=== PATIENT | male | born 1955 | race African-American/Black ===

== ENCOUNTER 2019-10-06 16:50 | Emergency (ER) | payer MEDICAID ==
[~2019-10-06] VITALS: Ht 180.3 cm; Wt 82.0 kg
[2019-10-06] MEDS ORDERED: PREDNISONE 20MG TABLET PO STA (17:42)
[2019-10-06] MEDS ORDERED: IPRATROPIUM BROMIDE (0.02%) 0.5MG/2.5ML NEB HHN STA (17:42)
[2019-10-06] MEDS ORDERED: ALBUTEROL (0.083%) 2.5MG/3ML NEB HHN STA (17:42)
[2019-10-06 20:24] VITALS: BP 132/87
== END 2019-10-06 20:56 | disposition home or self-care (01) ==
LOC: ER 16:50
DX: J44.1 Chronic obstructive pulmonary disease with (acute) exacerbation (principal); E11.9 Type 2 diabetes mellitus without complications; Z79.51 Long term (current) use of inhaled steroids
CPT/HCPCS: 93005; 94640; 99283; J7512; J7610; Z7610

== ENCOUNTER 2019-10-21 10:33 | Inpatient (IN) | payer MEDICAID ==
[~2019-10-21] VITALS: Ht 172.7 cm; Wt 82.1 kg
[2019-10-21] MEDS ORDERED: IPRATROPIUM BROMIDE (0.02%) 0.5MG/2.5ML NEB HHN STA (10:58)
[2019-10-21] MEDS ORDERED: METHYLPREDNISOLONE SOD SUCC 125 MG/2 ML VIAL IV STA (10:58)
[2019-10-21] MEDS ORDERED: MAGNESIUM 2 G PREMIX 50 ML IV ONE (11:00)
[2019-10-21] MEDS: ALBUTEROL (0.083%) 2.5MG/3ML NEB HHN SCH ×3 (11:17→12:12)
[2019-10-21 11:27] LABS: BASOPHILS % 0.6 % (0.0-2.0); EOSINOPHILS % 6.2 % (0.0-5.0); HEMATOCRIT. 53.5 % (42.0-52.0); HEMOGLOBIN. 18.2 g/dL (14.0-18.0); LYMPHOCYTES % 20.9 % (20.0-50.0); MEAN PLATELET VOLUME 8.1 fl (7.4-10.4); MONOCYTES % 9.3 % (2.0-8.0); PLATELET 170 x1000/uL (130-400); RED BLOOD CELL COUNT 5.88 mill/uL (4.7-6.1); RED CELL DISTRIBUTION WIDTH 15.3 % (11.6-14.6)
[2019-10-21 11:32] LABS: CHLORIDE 103 mEq/L (98-107)
[2019-10-21 11:34] LABS: PROTHROMBIN TIME 10.7 sec (9.6-11.0)
[2019-10-21] MEDS ORDERED: ALBUTEROL (0.083%) 2.5MG/3ML NEB HHN SCH (13:00)
[2019-10-21 20:00] VITALS: BP_SYST 144; BP_DIAS 78; BP_DIAS 79
[2019-10-21] MEDS ORDERED: ACETAMINOPHEN 325MG TABLET PO PRN (20:00)
[2019-10-21] MEDS ORDERED: IPRATROPIUM/ALBUTEROL 0.5-3(2.5)MG/3ML NEB HHN PRN (20:00)
[2019-10-21] MEDS ORDERED: ONDANSETRON HCL 4MG/2ML INJ IV PRN (20:00)
[2019-10-21] MEDS ORDERED: LORAZEPAM 0.5MG TABLET PO PRN (20:00)
[2019-10-21] MEDS ORDERED: HYDROCODONE/ACETAMINOPHEN 5/325MG TABLET PO PRN (20:00)
[2019-10-21] MEDS ORDERED: CLONIDINE 0.1MG TABLET PO PRN (20:00)
[2019-10-21 22:00] VITALS: BP 139/78
[2019-10-21] MEDS: METHYLPREDNISOLONE SOD SUCC 40 MG/ML VIAL IV SCH (22:37)
[2019-10-21] MEDS: GUAIFENESIN 200MG/10ML SUGAR FREE UDC PO PRN (22:37)
[2019-10-22] VITALS (8 sets, daily range): BP systolic 121–150; BP diastolic 71–86
[2019-10-22] MEDS: METHYLPREDNISOLONE SOD SUCC 40 MG/ML VIAL IV SCH ×3 (06:24→21:35)
[2019-10-22 06:26] LABS: BASOPHILS % 0.2 % (0.0-2.0); EOSINOPHILS % 0.1 % (0.0-5.0); HEMATOCRIT. 47.4 % (42.0-52.0); LYMPHOCYTES % 8.1 % (20.0-50.0); MEAN CORPUSCULAR HEMOGLOBIN 30.8 pg (28.0-32.0); MEAN CORPUSCULAR VOLUME 91.3 fL (80.0-94.0); MEAN PLATELET VOLUME 8.7 fl (7.4-10.4); MONOCYTES % 4.2 % (2.0-8.0); NEUTROPHILS % 87.4 % (40.0-76.0); PLATELET 157 x1000/uL (130-400); RED BLOOD CELL COUNT 5.19 mill/uL (4.7-6.1); RED CELL DISTRIBUTION WIDTH 15.3 % (11.6-14.6)
[2019-10-22 06:38] LABS: CHLORIDE 105 mEq/L (98-107)
[2019-10-22] MEDS ORDERED: DEXTROSE 50% WATER 50ML SYRINGE IV PRN ×2 (06:45→07:50)
[2019-10-22] MEDS: INSULIN LISPRO 100 UNITS/ML SUBCUT SCH ×4 (06:49→21:00)
[2019-10-22] MEDS: BLOOD SUGAR DIAGNOSTIC STRIP TEST SCH ×4 (06:50→21:00)
[2019-10-22] MEDS: IPRATROPIUM/ALBUTEROL 0.5-3(2.5)MG/3ML NEB HHN SCH ×3 (13:20→20:20)
[2019-10-22] MEDS: GUAIFENESIN 200MG/10ML SUGAR FREE UDC PO PRN (23:47)
[2019-10-23] MEDS: IPRATROPIUM/ALBUTEROL 0.5-3(2.5)MG/3ML NEB HHN SCH ×6 (00:19→20:57)
[2019-10-23] MEDS: METHYLPREDNISOLONE SOD SUCC 40 MG/ML VIAL IV SCH ×3 (05:28→21:22)
[2019-10-23] MEDS: INSULIN LISPRO 100 UNITS/ML SUBCUT SCH ×4 (06:45→21:22)
[2019-10-23] MEDS: BLOOD SUGAR DIAGNOSTIC STRIP TEST SCH ×4 (07:04→21:22)
[2019-10-23 08:00] VITALS: BP 148/81
[2019-10-23] MEDS ORDERED: GUAIFENESIN/CODEINE 200-20MG/10ML UDC PO PRN (10:00)
[2019-10-23 12:00] VITALS: BP 137/88
[2019-10-23 16:00] VITALS: BP 137/87
[2019-10-23 20:00] VITALS: BP 138/84
[2019-10-24] VITALS: BP 106/64
[2019-10-24] MEDS: IPRATROPIUM/ALBUTEROL 0.5-3(2.5)MG/3ML NEB HHN SCH ×4 (00:30→13:19)
[2019-10-24 04:00] VITALS: BP 121/70
[2019-10-24] MEDS: BLOOD SUGAR DIAGNOSTIC STRIP TEST SCH ×2 (05:57→11:45)
[2019-10-24] MEDS: METHYLPREDNISOLONE SOD SUCC 40 MG/ML VIAL IV SCH ×2 (05:58→13:13)
[2019-10-24] MEDS: INSULIN LISPRO 100 UNITS/ML SUBCUT SCH ×2 (05:59→13:15)
[2019-10-24 06:31] LABS: CHLORIDE 103 mEq/L (98-107)
[2019-10-24 06:47] LABS: BASOPHILS % 0.4 % (0.0-2.0); HEMOGLOBIN. 15.9 g/dL (14.0-18.0); LYMPHOCYTES % 7.5 % (20.0-50.0); MEAN CORPUSCULAR HEMOGLOBIN 31.5 pg (28.0-32.0); MEAN CORPUSCULAR VOLUME 91.1 fL (80.0-94.0); MEAN PLATELET VOLUME 8.8 fl (7.4-10.4); MONOCYTES % 5.6 % (2.0-8.0); NEUTROPHILS % 86.5 % (40.0-76.0); PLATELET 171 x1000/uL (130-400); RED BLOOD CELL COUNT 5.06 mill/uL (4.7-6.1)
[2019-10-24 08:00] VITALS: BP 146/86
[2019-10-24 12:00] VITALS: BP 143/87
[2019-10-24] MEDS ORDERED: ALBU18HF2 IH (12:25)
[2019-10-24] MEDS ORDERED: BENZ-16 MT (12:25)
[2019-10-24] MEDS ORDERED: P20 MT (12:25)
[2019-10-24] MEDS ORDERED: GUAI-641 MT (12:25)
[2019-10-24 13:40] VITALS: BP 143/87
[2019-10-24] MEDS ORDERED: IPRA3AMP9 HHN (15:28)
== END 2019-10-24 16:16 | disposition home or self-care (01) | DRG 140 ==
LOC: ER 10:33 → 5WST 12:27 → EDBEDREQ 12:30 → EDBEDREQTM 12:30 → EDBEDREQ 12:31 → ENRESERV 17:05
PROVIDERS: ADMIT Internal Medicine; ATTEND Internal Medicine
PROC: 5A09357 Assistance with Respiratory Ventilation, Less than 24 Consecutive Hours, Continuous Positive Airway Pressure (ICD-10-PCS; principal; 2019-10-21)
DX: J44.1 Chronic obstructive pulmonary disease with (acute) exacerbation (principal); J96.00 Acute respiratory failure, unspecified whether with hypoxia or hypercapnia; E11.9 Type 2 diabetes mellitus without complications; I10 Essential (primary) hypertension; Z87.891 Personal history of nicotine dependence; Z79.84 Long term (current) use of oral hypoglycemic drugs; Z82.5 Family history of asthma and other chronic lower respiratory diseases; Z88.0 Allergy status to penicillin
CPT/HCPCS: 36415; 71045; 80048; 80053; 82962; 83036; 83880; 84484; 85025; 93005; 94640; 96365; 99291; J1815; J2920; J2930; J3475

== ENCOUNTER 2019-11-11 06:15 | Inpatient (IN) | payer MEDICAID ==
[~2019-11-11] VITALS: Ht 180.3 cm; Wt 87.1 kg
[~2019-11-11 06:15] MED LIST: ALBU18HF2 IH; BENZ-16 MT; GUAI-641 MT; IPRA3AMP9 HHN; P20 MT
[2019-11-11] MEDS ORDERED: METHYLPREDNISOLONE SOD SUCC 125 MG/2 ML VIAL IV STA (06:23)
[2019-11-11] MEDS ORDERED: IPRATROPIUM BROMIDE (0.02%) 0.5MG/2.5ML NEB HHN STA (06:23)
[2019-11-11] MEDS ORDERED: MAGNESIUM 2 G PREMIX 50 ML IV STA (06:23)
[2019-11-11] MEDS ORDERED: ALBUTEROL (0.083%) 2.5MG/3ML NEB HHN STA (06:23)
[2019-11-11 06:39] LABS: BASOPHILS % 0.7 % (0.0-2.0); EOSINOPHILS % 6.7 % (0.0-5.0); HEMATOCRIT. 51.5 % (42.0-52.0); HEMOGLOBIN. 17.6 g/dL (14.0-18.0); LYMPHOCYTES % 25.1 % (20.0-50.0); MEAN CORPUSCULAR VOLUME 90.9 fL (80.0-94.0); MEAN PLATELET VOLUME 7.9 fl (7.4-10.4); MONOCYTES % 10.3 % (2.0-8.0); NEUTROPHILS % 57.2 % (40.0-76.0); PLATELET 183 x1000/uL (130-400); RED BLOOD CELL COUNT 5.67 mill/uL (4.7-6.1); RED CELL DISTRIBUTION WIDTH 14.9 % (11.6-14.6)
[2019-11-11 06:45] LABS: CHLORIDE 103 mEq/L (98-107)
[2019-11-11 11:55] VITALS: BP 137/90
[2019-11-11 12:00] VITALS: BP 137/90
[2019-11-11] MEDS ORDERED: ONDANSETRON HCL 4MG/2ML INJ IV PRN (12:15)
[2019-11-11] MEDS ORDERED: DEXTROSE 50% WATER 50ML SYRINGE IV PRN (12:15)
[2019-11-11] MEDS ORDERED: ACETAMINOPHEN 325MG TABLET PO PRN (12:15)
[2019-11-11] MEDS ORDERED: METF-414 PO (12:18)
[2019-11-11] MEDS: BLOOD SUGAR DIAGNOSTIC STRIP TEST SCH ×3 (12:21→21:26)
[2019-11-11] MEDS: ENOXAPARIN 30MG/0.3ML SYR SUBCUT SCH ×2 (13:27→21:26)
[2019-11-11] MEDS: METHYLPREDNISOLONE SOD SUCC 40 MG/ML VIAL IV SCH ×2 (13:27→21:25)
[2019-11-11] MEDS: INSULIN LISPRO 100 UNITS/ML SUBCUT SCH ×3 (13:35→21:26)
[2019-11-11 16:00] VITALS: BP 150/96
[2019-11-11] MEDS: IPRATROPIUM/ALBUTEROL 0.5-3(2.5)MG/3ML NEB HHN SCH ×2 (16:26→20:24)
[2019-11-11] MEDS: BENZONATATE 100MG CAPSULE PO PRN (20:24)
[2019-11-11 20:27] VITALS: BP 149/86
[2019-11-11] MEDS ORDERED: PNEUMOCOCCAL 23-VAL P-SAC VAC 0.5 ML IM ONE (21:00)
[2019-11-11] MEDS ORDERED: INFLUENZA VIRUS VACCINE(AFLURIA) 0.5ML SYR IM ONE (21:00)
[2019-11-12 00:02] VITALS: BP 119/76
[2019-11-12 04:00] VITALS: BP 133/83
[2019-11-12] MEDS: BENZONATATE 100MG CAPSULE PO PRN ×2 (04:05→12:44)
[2019-11-12] MEDS: METHYLPREDNISOLONE SOD SUCC 40 MG/ML VIAL IV SCH ×3 (06:08→22:00)
[2019-11-12] MEDS: BLOOD SUGAR DIAGNOSTIC STRIP TEST SCH ×4 (06:09→21:00)
[2019-11-12] MEDS: ENOXAPARIN 30MG/0.3ML SYR SUBCUT SCH (08:09)
[2019-11-12 08:28] VITALS: BP 135/92
[2019-11-12] MEDS: IPRATROPIUM/ALBUTEROL 0.5-3(2.5)MG/3ML NEB HHN SCH ×2 (09:16→16:23)
[2019-11-12] MEDS: INSULIN LISPRO 100 UNITS/ML SUBCUT SCH ×4 (09:32→21:00)
[2019-11-12 12:17] VITALS: BP 136/89
[2019-11-12 16:14] VITALS: BP 139/92
[2019-11-12] MEDS: GUAIFENESIN-DM 200MG-20MG/10ML UDC PO PRN (17:29)
[2019-11-12 20:00] VITALS: BP 127/84
[2019-11-13] VITALS: BP 120/82
[2019-11-13] MEDS: IPRATROPIUM/ALBUTEROL 0.5-3(2.5)MG/3ML NEB HHN SCH ×2 (00:20→08:20)
[2019-11-13] MEDS: METHYLPREDNISOLONE SOD SUCC 40 MG/ML VIAL IV SCH ×2 (06:11→13:11)
[2019-11-13] MEDS: BENZONATATE 100MG CAPSULE PO PRN (06:11)
[2019-11-13] MEDS: GUAIFENESIN-DM 200MG-20MG/10ML UDC PO PRN ×2 (06:26→14:24)
[2019-11-13] MEDS: BLOOD SUGAR DIAGNOSTIC STRIP TEST SCH ×2 (06:26→13:11)
[2019-11-13] MEDS: INSULIN LISPRO 100 UNITS/ML SUBCUT SCH ×2 (07:50→13:14)
[2019-11-13 08:00] VITALS: BP 122/83
[2019-11-13] MEDS ORDERED: ENOXAPARIN 40MG/0.4ML SYR SUBCUT SCH (09:00)
[2019-11-13 12:00] VITALS: BP 137/84
[2019-11-13 14:19] LABS: BG BASE EXCESS 2.1 mmol/L (-2.0-2.0); BG CARBOXYHEMOGLOBIN 0.6 % (0.5-1.5); BG DEOXYHEMOGLOBIN 5.6 % (0.0-5.0); BG HCO3 ACT 26.7 mmol/L (22.0-26.0); BG METHEMOGLOBIN 0.3 % (0.0-1.5); BG OXYGEN SATURATION 94.3 % (92.0-98.5); BG OXYHEMOGLOBIN 93.5 % (94.0-97.0); BG PCO2 41.5 mmHg (35.0-45.0); BG PH 7.427 (7.350-7.450); BG PO2 74.2 mmHg (75.0-100.0); BG SAMPLE SITE RIGHT RADIAL; BG TOTAL HEMOGLOBIN 16.9 g/dL (12.0-18.0); BG VENT MODE ROOM AIR
[2019-11-13] MEDS ORDERED: IPRA3AMP9 HHN (14:47)
[2019-11-13] MEDS ORDERED: MED4 MT (14:47)
[2019-11-13] MEDS ORDERED: ALBU18HF2 IH (14:47)
[2019-11-13] MEDS ORDERED: BENZ-16 MT (14:47)
[2019-11-13 15:15] VITALS: BP 137/84
[2019-11-13 16:20] VITALS: BP 140/84
== END 2019-11-13 17:20 | disposition home or self-care (01) | DRG 133 ==
LOC: ER 06:15 → 6WST 07:36 → ENRESERV 09:30 → 7WST 11-13 11:33
PROVIDERS: ADMIT Internal Medicine; ATTEND Internal Medicine
DX: J96.00 Acute respiratory failure, unspecified whether with hypoxia or hypercapnia (principal); R65.11 Systemic inflammatory response syndrome (SIRS) of non-infectious origin with acute organ dysfunction; D72.1 Eosinophilia; J44.0 Chronic obstructive pulmonary disease with (acute) lower respiratory infection; J44.1 Chronic obstructive pulmonary disease with (acute) exacerbation; I10 Essential (primary) hypertension; J20.9 Acute bronchitis, unspecified; E11.9 Type 2 diabetes mellitus without complications; Z88.0 Allergy status to penicillin; Z79.899 Other long term (current) drug therapy
CPT/HCPCS: 36415; 36600; 71045; 80053; 82375; 82805; 82962; 83880; 84484; 85025; 90686; 93005; 94640; 96365; 99285; J1650; J1815; J2920; J2930; J3475

== ENCOUNTER 2019-12-04 14:26 | Inpatient (IN) | payer MEDICAID ==
[~2019-12-04] VITALS: Ht 180.3 cm; Wt 83.6 kg
[~2019-12-04 14:26] MED LIST changes: -GUAI-641 MT; +MED4 MT; +METF-414 PO; -P20 MT
[2019-12-04] MEDS ORDERED: METHYLPREDNISOLONE SOD SUCC 125 MG/2 ML VIAL IV STA (14:51)
[2019-12-04 15:21] LABS: BASOPHILS % 0.5 % (0.0-2.0); EOSINOPHILS % 7.7 % (0.0-5.0); HEMATOCRIT. 48.5 % (42.0-52.0); HEMOGLOBIN. 16.8 g/dL (14.0-18.0); LYMPHOCYTES % 26.7 % (20.0-50.0); MEAN CORPUSCULAR HEMOGLOBIN 31.2 pg (28.0-32.0); MEAN CORPUSCULAR VOLUME 90.2 fL (80.0-94.0); MEAN PLATELET VOLUME 7.9 fl (7.4-10.4); MONOCYTES % 9.9 % (2.0-8.0); NEUTROPHILS % 55.2 % (40.0-76.0); PLATELET 196 x1000/uL (130-400); RED BLOOD CELL COUNT 5.38 mill/uL (4.7-6.1); RED CELL DISTRIBUTION WIDTH 14.1 % (11.6-14.6)
[2019-12-04 15:27] LABS: CHLORIDE 106 mEq/L (98-107)
[2019-12-04] MEDS ORDERED: ALBUTEROL (0.083%) 2.5MG/3ML NEB HHN ONE ×2 (16:00→18:00)
[2019-12-04 19:28] LABS: *AMPHETAMINES SCREEN URINE NEGATIVE (NEGATIVE); CANNABINOID URINE SCREEN NEGATIVE (NEGATIVE); METHADONE URINE SCREEN NEGATIVE (NEGATIVE); OPIATES URINE SCREEN NEGATIVE (NEGATIVE); PHENCYCLIDINE URINE SCREEN NEGATIVE (NEGATIVE)
[2019-12-04 19:29] LABS: *BARBITURATES SCREEN URINE NEGATIVE (NEGATIVE); *BENZODIAZEPINES SCREEN URINE NEGATIVE (NEGATIVE); *COCAINE SCREEN URINE NEGATIVE (NEGATIVE)
[2019-12-05 03:50] VITALS: BP 140/88
[2019-12-05] MEDS ORDERED: ALBUTEROL (0.083%) 2.5MG/3ML NEB HHN SCH (06:00)
[2019-12-05] MEDS: METHYLPREDNISOLONE SOD SUCC 40 MG/ML VIAL IV SCH ×3 (06:55→20:56)
[2019-12-05] MEDS ORDERED: LEVOFLOXACIN 500MG PREMIX 100 ML IV SCH (07:00)
[2019-12-05 08:00] VITALS: BP_SYST 128; BP_SYST 134; BP_DIAS 78; BP_DIAS 84
[2019-12-05] MEDS ORDERED: ENOXAPARIN 30MG/0.3ML SYR SUBCUT SCH (09:00)
[2019-12-05] MEDS ORDERED: ENOXAPARIN 40MG/0.4ML SYR SUBCUT SCH (09:00)
[2019-12-05] MEDS ORDERED: NON FORMULARY PATIENT HOME MED XX SCH (09:00)
[2019-12-05] MEDS ORDERED: GUAIFENESIN-DM 200MG-20MG/10ML UDC PO PRN (09:30)
[2019-12-05 12:00] VITALS: BP 122/75
[2019-12-05] MEDS: BENZONATATE 100MG CAPSULE PO SCH ×2 (12:16→20:57)
[2019-12-05] MEDS: BUDESONIDE 0.5MG/2ML NEB HHN SCH ×2 (14:33→21:29)
[2019-12-05 16:00] VITALS: BP 128/82
[2019-12-05] MEDS ORDERED: FLUT1DIS3 INH (16:09)
[2019-12-05] MEDS ORDERED: ALBU18HF2 IH (16:09)
[2019-12-05] MEDS ORDERED: IPRA3AMP9 HHN (16:09)
[2019-12-05] MEDS ORDERED: BENZ-16 MT (16:09)
[2019-12-05] MEDS ORDERED: P20 MT (16:10)
[2019-12-05 20:00] VITALS: BP 125/75
[2019-12-06] VITALS: BP 116/71
[2019-12-06] MEDS: ALBUTEROL (0.083%) 2.5MG/3ML NEB HHN SCH ×4 (01:40→21:06)
[2019-12-06 04:00] VITALS: BP 108/66
[2019-12-06] MEDS: METHYLPREDNISOLONE SOD SUCC 40 MG/ML VIAL IV SCH ×2 (05:17→16:46)
[2019-12-06] MEDS: BENZONATATE 100MG CAPSULE PO SCH ×3 (05:17→23:08)
[2019-12-06 08:00] VITALS: BP 124/81
[2019-12-06] MEDS: ENOXAPARIN 40MG/0.4ML SYR SUBCUT SCH (08:41)
[2019-12-06] MEDS: BUDESONIDE 0.5MG/2ML NEB HHN SCH ×2 (09:23→21:06)
[2019-12-06] MEDS ORDERED: LEVOFLOXACIN 500MG TABLET PO SCH (11:00)
[2019-12-06 12:00] VITALS: BP 137/85
[2019-12-06 16:00] VITALS: BP 132/81
[2019-12-06 20:00] VITALS: BP 132/76
[2019-12-07] VITALS: BP 136/80
[2019-12-07] MEDS: ALBUTEROL (0.083%) 2.5MG/3ML NEB HHN SCH ×2 (03:33→08:18)
[2019-12-07 04:00] VITALS: BP 126/78
[2019-12-07 08:00] VITALS: BP 130/84
[2019-12-07] MEDS: BUDESONIDE 0.5MG/2ML NEB HHN SCH (08:18)
[2019-12-07] MEDS: METHYLPREDNISOLONE SOD SUCC 40 MG/ML VIAL IV SCH (10:25)
[2019-12-07] MEDS: ENOXAPARIN 40MG/0.4ML SYR SUBCUT SCH (10:25)
[2019-12-07 12:06] VITALS: BP 149/84
[2019-12-07] MEDS: BENZONATATE 100MG CAPSULE PO SCH (12:21)
[2019-12-07] MEDS ORDERED: IPRATROPIUM/ALBUTEROL 0.5-3(2.5)MG/3ML NEB HHN PRN (14:15)
[2019-12-07] MEDS ORDERED: TERBUTALINE SULFATE 1MG/ML VIAL SUBCUT NR (14:30)
== END 2019-12-07 14:15 | disposition home or self-care (01) | DRG 140 ==
LOC: ER 14:26 → EDBEDREQTM 20:08 → EDBEDREQ 20:08 → ENRESERV 12-05 01:22 → 5WST 12-05 04:12
PROVIDERS: ADMIT Internal Medicine; ATTEND Internal Medicine
DX: J44.0 Chronic obstructive pulmonary disease with (acute) lower respiratory infection (principal); J96.00 Acute respiratory failure, unspecified whether with hypoxia or hypercapnia; D72.1 Eosinophilia; J20.9 Acute bronchitis, unspecified; E11.9 Type 2 diabetes mellitus without complications; I10 Essential (primary) hypertension; J44.1 Chronic obstructive pulmonary disease with (acute) exacerbation; Z82.5 Family history of asthma and other chronic lower respiratory diseases; Z87.891 Personal history of nicotine dependence; Z88.0 Allergy status to penicillin; Z79.51 Long term (current) use of inhaled steroids; Z79.84 Long term (current) use of oral hypoglycemic drugs
CPT/HCPCS: 36415; 71045; 80053; 80305; 84484; 85025; 93005; 99285; J1650; J1956; J2920; J2930; J3105; J7626

== ENCOUNTER 2020-02-27 16:42 | Inpatient (IN) | payer MEDICAID, MEDICARE ==
[~2020-02-27] VITALS: Ht 180.3 cm; Wt 87.7 kg
[~2020-02-27 16:42] MED LIST changes: -BENZ-16 MT; +FLUT1DIS3 INH; -MED4 MT; -METF-414 PO; +P20 PO; +TUSSL MT
[2020-02-27] MEDS ORDERED: IPRATROPIUM BROMIDE (0.02%) 0.5MG/2.5ML NEB HHN STA (16:59)
[2020-02-27] MEDS ORDERED: METHYLPREDNISOLONE SOD SUCC 125 MG/2 ML VIAL IV STA (16:59)
[2020-02-27] MEDS ORDERED: ALBUTEROL (0.083%) 2.5MG/3ML NEB HHN STA (16:59)
[2020-02-27 17:42] LABS: BASOPHILS % 0.8 % (0.0-2.0); EOSINOPHILS % 8.1 % (0.0-5.0); HEMOGLOBIN. 16.4 g/dL (14.0-18.0); LYMPHOCYTES % 29.1 % (20.0-50.0); MEAN CORPUSCULAR HEMOGLOBIN 31.6 pg (28.0-32.0); MEAN CORPUSCULAR VOLUME 92.5 fL (80.0-94.0); MEAN PLATELET VOLUME 8.3 fl (7.4-10.4); MONOCYTES % 11.8 % (2.0-8.0); NEUTROPHILS % 50.2 % (40.0-76.0); PLATELET 176 x1000/uL (130-400); RED BLOOD CELL COUNT 5.18 mill/uL (4.7-6.1)
[2020-02-27 17:46] LABS: CHLORIDE 107 mEq/L (98-107)
[2020-02-27] MEDS ORDERED: SODIUM CHLORIDE 0.9% 1,000 ML IV ONE (18:15)
[2020-02-27 18:32] LABS: BG BASE EXCESS -0.4 mmol/L (-2.0-2.0); BG CARBOXYHEMOGLOBIN 1.2 % (0.5-1.5); BG DEOXYHEMOGLOBIN 3.3 % (0.0-5.0); BG FRACTION INSPIRED OXYGEN 32; BG HCO3 ACT 26.1 mmol/L (22.0-26.0); BG METHEMOGLOBIN 0.3 % (0.0-1.5); BG OXYGEN SATURATION 96.6 % (92.0-98.5); BG OXYHEMOGLOBIN 95.2 % (94.0-97.0); BG PH 7.344 (7.350-7.450); BG PO2 87.9 mmHg (75.0-100.0); BG SAMPLE SITE RIGHT RADIAL; BG VENT MODE NASAL CANNULA
[2020-02-27] MEDS ORDERED: ACETAMINOPHEN WITH CODEINE 300/30MG TABLET PO ONE (20:15)
[2020-02-27] MEDS ORDERED: GUAIFENESIN/CODEINE 200-20MG/10ML UDC PO ONE (20:30)
[2020-02-27] MEDS ORDERED: GUAIFENESIN/CODEINE 100-10MG/5ML UDC PO SCH (20:30)
[2020-02-27 23:00] VITALS: BP 151/87
[2020-02-28] MEDS: METHYLPREDNISOLONE SOD SUCC 125 MG/2 ML VIAL IV SCH ×4 (00:06→17:08)
[2020-02-28] MEDS: IPRATROPIUM/ALBUTEROL 0.5-3(2.5)MG/3ML NEB HHN SCH ×6 (00:46→20:30)
[2020-02-28] MEDS: LEVOFLOXACIN 500MG PREMIX 100 ML IV SCH (03:04)
[2020-02-28 04:00] VITALS: BP 139/75
[2020-02-28 06:15] LABS: CHLORIDE 106 mEq/L (98-107)
[2020-02-28 06:17] LABS: BASOPHILS % 0.2 % (0.0-2.0); EOSINOPHILS % 0.1 % (0.0-5.0); HEMATOCRIT. 47.4 % (42.0-52.0); HEMOGLOBIN. 15.9 g/dL (14.0-18.0); MEAN CORPUSCULAR VOLUME 92.3 fL (80.0-94.0); MONOCYTES % 1.3 % (2.0-8.0); NEUTROPHILS % 88.4 % (40.0-76.0); PLATELET 169 x1000/uL (130-400); RED BLOOD CELL COUNT 5.14 mill/uL (4.7-6.1); RED CELL DISTRIBUTION WIDTH 15.1 % (11.6-14.6)
[2020-02-28 08:00] VITALS: BP 125/61
[2020-02-28 09:58] LABS: BG BASE EXCESS -2.3 mmol/L (-2.0-2.0); BG CARBOXYHEMOGLOBIN 0.7 % (0.5-1.5); BG DEOXYHEMOGLOBIN 5.6 % (0.0-5.0); BG FRACTION INSPIRED OXYGEN 32; BG HCO3 ACT 22.3 mmol/L (22.0-26.0); BG METHEMOGLOBIN 0.3 % (0.0-1.5); BG OXYGEN SATURATION 94.3 % (92.0-98.5); BG OXYHEMOGLOBIN 93.4 % (94.0-97.0); BG PCO2 37.8 mmHg (35.0-45.0); BG PH 7.388 (7.350-7.450); BG PO2 70.4 mmHg (75.0-100.0); BG SAMPLE SITE RIGHT RADIAL; BG TOTAL HEMOGLOBIN 15.7 g/dL (12.0-18.0); BG VENT MODE NASAL CANNULA
[2020-02-28] MEDS: FAMOTIDINE 20MG TABLET PO SCH ×2 (10:05→20:51)
[2020-02-28] MEDS: ENOXAPARIN 40MG/0.4ML SYR SUBCUT SCH (10:06)
[2020-02-28 12:00] VITALS: BP 130/66
[2020-02-28] MEDS: GUAIFENESIN-DM 200MG-20MG/10ML UDC PO PRN (14:01)
[2020-02-28] MEDS: HYDROCODONE/ACETAMINOPHEN 5/325MG TABLET PO PRN (14:05)
[2020-02-28 16:30] VITALS: BP 137/73
[2020-02-28 20:27] VITALS: BP 142/72
[2020-02-28] MEDS: GUAIFENESIN 600MG ER TABLET PO SCH (20:51)
[2020-02-29] VITALS (7 sets, daily range): BP systolic 117–149; BP diastolic 67–85
[2020-02-29] MEDS: LEVOFLOXACIN 500MG PREMIX 100 ML IV SCH (01:46)
[2020-02-29] MEDS: METHYLPREDNISOLONE SOD SUCC 125 MG/2 ML VIAL IV SCH ×4 (01:46→17:04)
[2020-02-29] MEDS: IPRATROPIUM/ALBUTEROL 0.5-3(2.5)MG/3ML NEB HHN SCH ×4 (07:53→20:45)
[2020-02-29] MEDS: FAMOTIDINE 20MG TABLET PO SCH ×2 (08:01→19:51)
[2020-02-29] MEDS: GUAIFENESIN 600MG ER TABLET PO SCH ×2 (08:01→19:51)
[2020-02-29] MEDS: ENOXAPARIN 40MG/0.4ML SYR SUBCUT SCH (08:02)
[2020-02-29] MEDS: HYDROCODONE/ACETAMINOPHEN 5/325MG TABLET PO PRN (10:15)
[2020-02-29] MEDS: GUAIFENESIN-DM 200MG-20MG/10ML UDC PO PRN (17:23)
[2020-03-01] VITALS: BP 151/91
[2020-03-01] MEDS: METHYLPREDNISOLONE SOD SUCC 125 MG/2 ML VIAL IV SCH ×2 (00:02→05:26)
[2020-03-01] MEDS: GUAIFENESIN-DM 200MG-20MG/10ML UDC PO PRN (00:02)
[2020-03-01 04:00] VITALS: BP 144/72
[2020-03-01] MEDS: IPRATROPIUM/ALBUTEROL 0.5-3(2.5)MG/3ML NEB HHN SCH ×6 (04:30→16:29)
[2020-03-01 06:11] LABS: HEMOGLOBIN. 14.8 g/dL (14.0-18.0); MEAN CORPUSCULAR HEMOGLOBIN 30.7 pg (28.0-32.0); MEAN CORPUSCULAR VOLUME 91.4 fL (80.0-94.0); MEAN PLATELET VOLUME 8.4 fl (7.4-10.4); PLATELET 186 x1000/uL (130-400); RED BLOOD CELL COUNT 4.82 mill/uL (4.7-6.1); RED CELL DISTRIBUTION WIDTH 14.6 % (11.6-14.6)
[2020-03-01 06:58] LABS: CHLORIDE 103 mEq/L (98-107)
[2020-03-01 07:08] LABS: PHOSPHORUS 2.5 mg/dL (2.5-4.9)
[2020-03-01 08:20] VITALS: BP 141/75
[2020-03-01] MEDS: ENOXAPARIN 40MG/0.4ML SYR SUBCUT SCH (09:28)
[2020-03-01] MEDS: FAMOTIDINE 20MG TABLET PO SCH (09:28)
[2020-03-01] MEDS: GUAIFENESIN 600MG ER TABLET PO SCH (09:28)
[2020-03-01] MEDS ORDERED: DEXTROSE 50% WATER 50ML SYRINGE IV PRN (11:00)
[2020-03-01] MEDS ORDERED: LEVOFLOXACIN 500MG TABLET PO SCH (11:00)
[2020-03-01 11:19] LABS: BG BASE EXCESS 2.2 mmol/L (-2.0-2.0); BG CARBOXYHEMOGLOBIN 0.9 % (0.5-1.5); BG DEOXYHEMOGLOBIN 5.1 % (0.0-5.0); BG FRACTION INSPIRED OXYGEN 21; BG HCO3 ACT 27.6 mmol/L (22.0-26.0); BG METHEMOGLOBIN 0.3 % (0.0-1.5); BG OXYGEN SATURATION 94.8 % (92.0-98.5); BG OXYHEMOGLOBIN 93.7 % (94.0-97.0); BG PCO2 45.3 mmHg (35.0-45.0); BG PH 7.402 (7.350-7.450); BG PO2 71.5 mmHg (75.0-100.0); BG SAMPLE SITE RIGHT RADIAL; BG TOTAL HEMOGLOBIN 16.4 g/dL (12.0-18.0); BG VENT MODE ROOM AIR
[2020-03-01] MEDS ORDERED: BLOO1KIT74 TP (11:33)
[2020-03-01] MEDS ORDERED: FLUT1AER INH (11:33)
[2020-03-01] MEDS ORDERED: LEVO500T2 MT (11:33)
[2020-03-01] MEDS ORDERED: DILT30TA38 PO (11:33)
[2020-03-01] MEDS ORDERED: IPRA3AMP9 NEB (11:33)
[2020-03-01] MEDS ORDERED: P20 PO (11:33)
[2020-03-01 12:00] VITALS: BP 174/98
[2020-03-01] MEDS: BLOOD SUGAR DIAGNOSTIC STRIP TEST SCH ×2 (12:20→17:47)
[2020-03-01] MEDS: INSULIN LISPRO 100 UNITS/ML SUBCUT SCH ×2 (13:24→17:47)
[2020-03-01] MEDS ORDERED: DILTIAZEM HCL 30MG TABLET PO SCH (14:00)
[2020-03-01 14:08] LABS: PLATELET ESTIMATE NORMAL
[2020-03-01 16:00] VITALS: BP 131/86
[2020-03-01] MEDS ORDERED: METHYLPREDNISOLONE SOD SUCC 40 MG/ML VIAL IV SCH (16:00)
[2020-03-01] MEDS ORDERED: INSULIN LISPRO 100 UNITS/ML SUBCUT NR (16:15)
[2020-03-01 16:31] VITALS: BP 131/86
== END 2020-03-01 20:05 | disposition home or self-care (01) | DRG 140 ==
LOC: ER 16:42 → 6WST 19:57 → ENRESERV 21:39 → CMPBEDREQ 02-29 07:21
PROVIDERS: ADMIT Internal Medicine; ATTEND Internal Medicine
DX: J44.1 Chronic obstructive pulmonary disease with (acute) exacerbation (principal); J96.90 Respiratory failure, unspecified, unspecified whether with hypoxia or hypercapnia; E11.9 Type 2 diabetes mellitus without complications; I10 Essential (primary) hypertension; Z79.51 Long term (current) use of inhaled steroids; Z79.899 Other long term (current) drug therapy; Z83.3 Family history of diabetes mellitus; Z87.891 Personal history of nicotine dependence; Z91.19 Patient's noncompliance with other medical treatment and regimen; Z71.3 Dietary counseling and surveillance; Z88.0 Allergy status to penicillin
CPT/HCPCS: 36415; 36600; 71045; 80048; 80053; 82375; 82805; 82962; 83036; 83735; 83880; 84100; 84484; 85025; 93005; 94618; 94640; 96374; 99291; J1650; J1815; J1956; J2920; J2930; J7030

== ENCOUNTER 2020-04-15 15:59 | Emergency (ER) | payer MEDICAID, MEDICARE ==
[~2020-04-15] VITALS: Ht 180.3 cm; Wt 77.0 kg
[~2020-04-15 15:59] MED LIST changes: +BLOO1KIT74 TP; +DILT30TA38 PO; +FLUT1AER INH; -FLUT1DIS3 INH; +IPRA3AMP9 NEB; +LEVO500T2 MT
[2020-04-15 17:00] LABS: BASOPHILS % 0.6 % (0.0-2.0); EOSINOPHILS % 2.8 % (0.0-5.0); HEMATOCRIT. 51.5 % (42.0-52.0); HEMOGLOBIN. 17.5 g/dL (14.0-18.0); LYMPHOCYTES % 21.6 % (20.0-50.0); MEAN CORPUSCULAR HEMOGLOBIN 31.6 pg (28.0-32.0); MEAN CORPUSCULAR VOLUME 93.3 fL (80.0-94.0); MEAN PLATELET VOLUME 8.6 fl (7.4-10.4); MONOCYTES % 9.7 % (2.0-8.0); NEUTROPHILS % 65.3 % (40.0-76.0); PLATELET 177 x1000/uL (130-400); RED BLOOD CELL COUNT 5.52 mill/uL (4.7-6.1); RED CELL DISTRIBUTION WIDTH 15.8 % (11.6-14.6)
[2020-04-15 17:06] LABS: CHLORIDE 105 mEq/L (98-107)
[2020-04-15] MEDS ORDERED: SODIUM CHLORIDE 0.9% 1,000 ML IV ONE (18:33)
[2020-04-15] MEDS ORDERED: PREDNISONE 20MG TABLET PO ONE (18:45)
[2020-04-15] MEDS ORDERED: AZITHROMYCIN 500 MG TABLET PO ONE (18:45)
[2020-04-15] MEDS ORDERED: ALBUTEROL 6.7GM HFA INHALER ORI ONE (18:45)
[2020-04-15] MEDS ORDERED: CEFTRIAXONE 1 G PREMIX 50 ML IV ONE (21:00)
[2020-04-16] MEDS ORDERED: ALBUTEROL (0.5%) 2.5MG/0.5ML NEB HHN ONE (01:00)
[2020-04-16 01:05] VITALS: BP 154/87
== END 2020-04-16 01:08 | disposition short-term general hospital (02) ==
LOC: ER 15:59 → CANBEDREQ 23:23 → ER 04-16 01:08
DX: J44.1 Chronic obstructive pulmonary disease with (acute) exacerbation (principal); I10 Essential (primary) hypertension; Z79.899 Other long term (current) drug therapy
CPT/HCPCS: 36415; 71045; 80053; 83605; 85025; 93005; 94640; 96360; 99285; J7030; J7512; Z7610

== ENCOUNTER 2021-12-05 05:46 | Emergency (ER) | payer MEDICAID, MEDICARE ==
[~2021-12-05] VITALS: Ht 170.2 cm; Wt 65.0 kg
[2021-12-05] MEDS ORDERED: ALBUTEROL (0.083%) 2.5MG/3ML NEB HHN STA ×2 (05:57→08:17)
[2021-12-05] MEDS ORDERED: METHYLPREDNISOLONE SOD SUCC 125 MG/2 ML VIAL IV STA (05:57)
[2021-12-05] MEDS ORDERED: MAGNESIUM 2 G PREMIX 50 ML IV STA (05:57)
[2021-12-05] MEDS ORDERED: IPRATROPIUM BROMIDE (0.02%) 0.5MG/2.5ML NEB HHN STA (05:57)
[2021-12-05 08:25] LABS: BASOPHILS % 0.4 % (0.0-2.0); EOSINOPHILS % 7.4 % (0.0-5.0); HEMATOCRIT. 39.9 % (42.0-52.0); HEMOGLOBIN. 13.3 g/dL (14.0-18.0); MEAN CORPUSCULAR HEMOGLOBIN 31.8 pg (28.0-32.0); MEAN CORPUSCULAR VOLUME 95.3 fL (80.0-94.0); MEAN PLATELET VOLUME 7.2 fl (7.4-10.4); MONOCYTES % 8.5 % (2.0-8.0); NEUTROPHILS % 61.7 % (40.0-76.0); PLATELET 149 x1000/uL (130-400); RED BLOOD CELL COUNT 4.18 mill/uL (4.7-6.1); RED CELL DISTRIBUTION WIDTH 14.7 % (11.6-14.6)
[2021-12-05 08:27] LABS: CHLORIDE 107 mEq/L (98-107)
[2021-12-05 09:49] LABS: BG BASE EXCESS -0.4 mmol/L (-2.0-2.0); BG CARBOXYHEMOGLOBIN 0.8 % (0.5-1.5); BG DEOXYHEMOGLOBIN 8.4 % (0.0-5.0); BG FRACTION INSPIRED OXYGEN 32; BG HCO3 ACT 24.8 mmol/L (22.0-26.0); BG METHEMOGLOBIN 0.3 % (0.0-1.5); BG OXYGEN SATURATION 91.5 % (92.0-98.5); BG OXYHEMOGLOBIN 90.5 % (94.0-97.0); BG PCO2 42.5 mmHg (35.0-45.0); BG PH 7.384 (7.350-7.450); BG SAMPLE SITE RIGHT RADIAL; BG TOTAL HEMOGLOBIN 14.1 g/dL (12.0-18.0); BG VENT MODE NASAL CANNULA
[2021-12-05 13:52] VITALS: BP 134/84
== END 2021-12-05 14:25 | disposition short-term general hospital (02) ==
LOC: ER 05:46 → CANBEDREQ 14:24 → ER 14:25
DX: J44.1 Chronic obstructive pulmonary disease with (acute) exacerbation (principal); I10 Essential (primary) hypertension; R00.0 Tachycardia, unspecified; E11.9 Type 2 diabetes mellitus without complications; Z20.822 Contact with and (suspected) exposure to COVID-19; Z88.0 Allergy status to penicillin; Z79.51 Long term (current) use of inhaled steroids; Z79.899 Other long term (current) drug therapy
CPT/HCPCS: 36415; 36600; 71045; 80053; 82375; 82805; 83880; 84484; 85025; 87426; 93005; 94640; 94644; 96365; 96375; 99285; J2930; J3475; Z7610

== ENCOUNTER 2021-12-28 07:05 | Inpatient (IN) | payer MEDICAID, MEDICARE ==
[~2021-12-28] VITALS: Ht 177.8 cm; Wt 100.0 kg
[2021-12-28] MEDS ORDERED: IPRATROPIUM BROMIDE (0.02%) 0.5MG/2.5ML NEB HHN STA (07:09)
[2021-12-28] MEDS ORDERED: ALBUTEROL (0.083%) 2.5MG/3ML NEB HHN STA ×2 (07:09→10:43)
[2021-12-28] MEDS ORDERED: METHYLPREDNISOLONE SOD SUCC 125 MG/2 ML VIAL IV STA (07:09)
[2021-12-28] MEDS ORDERED: METHYLPREDNISOLONE SOD SUCC 125 MG/2 ML VIAL IV NR (09:00)
[2021-12-28] MEDS ORDERED: MAGNESIUM 2 G PREMIX 50 ML IV STA (10:43)
[2021-12-28] MEDS ORDERED: MORPHINE SULFATE 4 MG/ML CPJ (NOT FOR IM USE) IV ONE (10:45)
[2021-12-28 10:53] LABS: BASOPHILS % 0.6 % (0.0-2.0); EOSINOPHILS % 6.2 % (0.0-5.0); HEMATOCRIT. 41.7 % (42.0-52.0); HEMOGLOBIN. 14.1 g/dL (14.0-18.0); LYMPHOCYTES % 21.5 % (20.0-50.0); MEAN CORPUSCULAR HEMOGLOBIN 32.2 pg (28.0-32.0); MEAN CORPUSCULAR VOLUME 95.3 fL (80.0-94.0); MEAN PLATELET VOLUME 8.5 fl (7.4-10.4); MONOCYTES % 11.8 % (2.0-8.0); NEUTROPHILS % 59.9 % (40.0-76.0); PLATELET 184 x1000/uL (130-400); RED BLOOD CELL COUNT 4.38 mill/uL (4.7-6.1); RED CELL DISTRIBUTION WIDTH 14.5 % (11.6-14.6)
[2021-12-28 10:55] LABS: CHLORIDE 111 mEq/L (98-107)
[2021-12-28 11:01] LABS: ETHANOL BLOOD < 10 mg/dL
[2021-12-28 15:16] LABS: CLARITY URINE CLEAR (CLEAR); COLOR URINE YELLOW (YELLOW); KETONES URINE 1+ (NEGATIVE); LEUKOCYTE ESTERASE URINE NEGATIVE (NEGATIVE); NITRITE URINE NEGATIVE (NEGATIVE); OCCULT BLOOD URINE NEGATIVE (NEGATIVE); PROTEIN URINE TRACE (NEGATIVE)
[2021-12-28 15:40] LABS: *AMPHETAMINES SCREEN URINE NEGATIVE (NEGATIVE); *BARBITURATES SCREEN URINE NEGATIVE (NEGATIVE); *BENZODIAZEPINES SCREEN URINE NEGATIVE (NEGATIVE); *COCAINE SCREEN URINE NEGATIVE (NEGATIVE); CANNABINOID URINE SCREEN NEGATIVE (NEGATIVE); METHADONE URINE SCREEN NEGATIVE (NEGATIVE); OPIATES URINE SCREEN PRESUMTIVE POSITIVE (NEGATIVE); PHENCYCLIDINE URINE SCREEN NEGATIVE (NEGATIVE)
[2021-12-28] MEDS: METHYLPREDNISOLONE SOD SUCC 40 MG/ML VIAL IV SCH (16:45)
[2021-12-28] MEDS: IPRATROPIUM/ALBUTEROL 0.5-3(2.5)MG/3ML NEB HHN SCH (18:02)
[2021-12-28] MEDS ORDERED: ENOXAPARIN 30MG/0.3ML SYR SUBCUT SCH (21:00)
[2021-12-28] MEDS ORDERED: FAMOTIDINE 20MG TABLET PO SCH (21:00)
[2021-12-29 00:30] VITALS: BP 146/88
[2021-12-29] MEDS: IPRATROPIUM/ALBUTEROL 0.5-3(2.5)MG/3ML NEB HHN SCH (00:46)
[2021-12-29] MEDS: METHYLPREDNISOLONE SOD SUCC 40 MG/ML VIAL IV SCH (00:57)
== END 2021-12-29 00:53 | disposition short-term general hospital (02) | DRG 140 ==
LOC: ER 07:37 → MICUSO 13:14
PROVIDERS: ADMIT Internal Medicine; ATTEND Internal Medicine
DX: J44.1 Chronic obstructive pulmonary disease with (acute) exacerbation (principal); E11.9 Type 2 diabetes mellitus without complications; I10 Essential (primary) hypertension; Z20.822 Contact with and (suspected) exposure to COVID-19; Z88.0 Allergy status to penicillin; Z79.899 Other long term (current) drug therapy; Z79.2 Long term (current) use of antibiotics; Z87.891 Personal history of nicotine dependence
CPT/HCPCS: 36415; 71045; 80053; 80305; 80320; 81003; 85025; 87426; 93005; 94640; 99285; C9803; J1650; J2270; J2920; J2930; J3475; G0480

== ENCOUNTER 2022-01-20 00:19 | Emergency (ER) | payer MEDICARE ==
[~2022-01-20] VITALS: Ht 180.3 cm; Wt 100.0 kg
[2022-01-20] MEDS ORDERED: ONDANSETRON HCL 4MG/2ML INJ IV STA (00:28)
[2022-01-20] MEDS ORDERED: METHYLPREDNISOLONE SOD SUCC 125 MG/2 ML VIAL IV STA (00:28)
[2022-01-20] MEDS ORDERED: IPRATROPIUM BROMIDE (0.02%) 0.5MG/2.5ML NEB HHN STA ×2 (00:28→11:26)
[2022-01-20] MEDS ORDERED: MAGNESIUM 2 G PREMIX 50 ML IV ONE (00:30)
[2022-01-20] MEDS: ALBUTEROL (0.083%) 2.5MG/3ML NEB HHN SCH ×3 (01:30→02:29)
[2022-01-20] MEDS ORDERED: METHYLPREDNISOLONE SOD SUCC 125 MG/2 ML VIAL IV NR (02:00)
[2022-01-20] MEDS ORDERED: MAGNESIUM 2 G PREMIX 50 ML IV NR (02:00)
[2022-01-20] MEDS ORDERED: ONDANSETRON HCL 4MG/2ML INJ IV NR (02:00)
[2022-01-20 02:05] LABS: BG BASE EXCESS -0.3 mmol/L (-2.0-2.0); BG CARBOXYHEMOGLOBIN 0.8 % (0.5-1.5); BG FRACTION INSPIRED OXYGEN 36; BG HCO3 ACT 24.2 mmol/L (22.0-26.0); BG METHEMOGLOBIN 0.3 % (0.0-1.5); BG OXYGEN SATURATION 94.9 % (92.0-98.5); BG OXYHEMOGLOBIN 93.9 % (94.0-97.0); BG PCO2 39.3 mmHg (35.0-45.0); BG PH 7.408 (7.350-7.450); BG PO2 73.1 mmHg (75.0-100.0); BG SAMPLE SITE LEFT RADIAL; BG TOTAL HEMOGLOBIN 15.5 g/dL (12.0-18.0); BG VENT MODE NASAL CANNULA
[2022-01-20 02:46] LABS: BASOPHILS % 0.4 % (0.0-2.0); EOSINOPHILS % 8.3 % (0.0-5.0); HEMATOCRIT. 45.6 % (42.0-52.0); HEMOGLOBIN. 15.4 g/dL (14.0-18.0); LYMPHOCYTES % 31.3 % (20.0-50.0); MEAN CORPUSCULAR HEMOGLOBIN 31.4 pg (28.0-32.0); MEAN CORPUSCULAR VOLUME 92.7 fL (80.0-94.0); MEAN PLATELET VOLUME 8.4 fl (7.4-10.4); MONOCYTES % 13.1 % (2.0-8.0); NEUTROPHILS % 46.9 % (40.0-76.0); PLATELET 193 x1000/uL (130-400); RED BLOOD CELL COUNT 4.92 mill/uL (4.7-6.1); RED CELL DISTRIBUTION WIDTH 14.8 % (11.6-14.6)
[2022-01-20 02:52] LABS: CHLORIDE 103 mEq/L (98-107)
[2022-01-20] MEDS ORDERED: ALBUTEROL (0.083%) 2.5MG/3ML NEB HHN STA (11:26)
[2022-01-20 16:27] VITALS: BP 153/93
== END 2022-01-20 16:25 | disposition short-term general hospital (02) ==
LOC: ER 00:19
DX: J44.1 Chronic obstructive pulmonary disease with (acute) exacerbation (principal); I10 Essential (primary) hypertension; E11.9 Type 2 diabetes mellitus without complications; Z20.822 Contact with and (suspected) exposure to COVID-19; Z88.0 Allergy status to penicillin; Z79.899 Other long term (current) drug therapy
CPT/HCPCS: 36415; 36600; 71045; 80053; 82375; 82805; 82962; 83605; 83880; 84484; 85025; 85379; 87040; 87426; 93005; 94640; 96365; 96375; 99291; C9803; J2405; J2930; J3475; Z7610; 94660

== ENCOUNTER 2022-02-26 16:36 | Inpatient (IN) | payer MEDICARE ==
[~2022-02-26] VITALS: Ht 180.3 cm; Wt 83.2 kg
[2022-02-26] MEDS ORDERED: ALBUTEROL (0.083%) 2.5MG/3ML NEB HHN STA (16:58)
[2022-02-26] MEDS ORDERED: METHYLPREDNISOLONE SOD SUCC 125 MG/2 ML VIAL IV STA (16:58)
[2022-02-26] MEDS ORDERED: IPRATROPIUM BROMIDE (0.02%) 0.5MG/2.5ML NEB HHN STA (16:58)
[2022-02-26] MEDS ORDERED: MAGNESIUM 2 G PREMIX 50 ML IV ONE (17:00)
[2022-02-26] MEDS ORDERED: ASPIRIN 81MG TABLET PO ONE (17:00)
[2022-02-26] MEDS ORDERED: MAGNESIUM/ALUMINUM HYDROXIDE/SIMETHICONE 30ML UDC PO STA (17:13)
[2022-02-26] MEDS ORDERED: VISCOUS LIDOCAINE 2% 15 ML UDC PO STA (17:13)
[2022-02-26 17:23] LABS: CHLORIDE 106 mEq/L (98-107)
[2022-02-26 17:37] LABS: BASOPHILS % 0.5 % (0.0-2.0); EOSINOPHILS % 5.4 % (0.0-5.0); HEMATOCRIT. 44.5 % (42.0-52.0); HEMOGLOBIN. 14.9 g/dL (14.0-18.0); LYMPHOCYTES % 25.2 % (20.0-50.0); MEAN CORPUSCULAR HEMOGLOBIN 31.3 pg (28.0-32.0); MEAN CORPUSCULAR VOLUME 93.5 fL (80.0-94.0); MONOCYTES % 10.1 % (2.0-8.0); NEUTROPHILS % 58.8 % (40.0-76.0); PLATELET 206 x1000/uL (130-400); RED BLOOD CELL COUNT 4.75 mill/uL (4.7-6.1); RED CELL DISTRIBUTION WIDTH 14.4 % (11.6-14.6)
[2022-02-26] MEDS ORDERED: KETAMINE HCL 100 MG in SODIUM CHLORIDE 0.9% 98 ML IV PRN (17:45)
[2022-02-26] MEDS ORDERED: CEFTRIAXONE 1 G PREMIX 50 ML IV ONE (18:30)
[2022-02-26] MEDS ORDERED: AZITHROMYCIN 500MG/250ML 250 ML IV ONE (18:30)
[2022-02-26] MEDS ORDERED: IPRATROPIUM BROMIDE (0.02%) 0.5MG/2.5ML NEB ONE (20:09)
[2022-02-26] MEDS ORDERED: CEFTRIAXONE 1 G PREMIX 50 ML IV NR (20:15)
[2022-02-26] MEDS ORDERED: MAGNESIUM/ALUMINUM HYDROXIDE/SIMETHICONE 30ML UDC PO NR (20:15)
[2022-02-26] MEDS ORDERED: ALBUTEROL (0.083%) 2.5MG/3ML NEB HHN NR (20:15)
[2022-02-26] MEDS ORDERED: AZITHROMYCIN 500MG/250ML 250 ML IV NR (20:15)
[2022-02-26] MEDS ORDERED: VISCOUS LIDOCAINE 2% 15 ML UDC PO NR (20:15)
[2022-02-27 08:30] VITALS: BP 145/83
[2022-02-27] MEDS ORDERED: ACETAMINOPHEN 325MG TABLET PO PRN (09:30)
[2022-02-27] MEDS ORDERED: DEXTROSE 50% WATER 50ML SYRINGE IV PRN (09:30)
[2022-02-27] MEDS ORDERED: ONDANSETRON HCL 4MG/2ML INJ IV PRN (09:30)
[2022-02-27] MEDS ORDERED: IPRATROPIUM/ALBUTEROL 0.5-3(2.5)MG/3ML NEB HHN PRN (09:30)
[2022-02-27] MEDS ORDERED: METF-414 PO (09:51)
[2022-02-27] MEDS ORDERED: BUDE6HFA INH (09:53)
[2022-02-27] MEDS ORDERED: ALBU4TAB6 PO (09:53)
[2022-02-27] MEDS ORDERED: FLUT1DIS2 INH (09:55)
[2022-02-27 09:56] VITALS: BP 145/83
[2022-02-27] MEDS ORDERED: METHYLPREDNISOLONE SOD SUCC 40 MG/ML VIAL IV SCH (10:00)
[2022-02-27] MEDS ORDERED: *PATIENT'S OWN MEDICATION STORAGE XX SCH (10:15)
[2022-02-27] MEDS ORDERED: GUAIFENESIN-DM 200MG-20MG/10ML UDC PO PRN (10:15)
[2022-02-27 11:43] VITALS: BP 145/83
[2022-02-27] MEDS ORDERED: BLOOD SUGAR DIAGNOSTIC STRIP TEST SCH (12:20)
[2022-02-27] MEDS ORDERED: INSULIN LISPRO 100 UNITS/ML SUBCUT SCH (12:50)
== END 2022-02-27 14:55 | disposition short-term general hospital (02) | DRG 133 ==
LOC: ER 16:36 → 6WST 02-27 00:08 → ENRESERV 02-27 06:48
PROVIDERS: ADMIT Internal Medicine; ATTEND Internal Medicine
DX: J96.00 Acute respiratory failure, unspecified whether with hypoxia or hypercapnia (principal); J44.1 Chronic obstructive pulmonary disease with (acute) exacerbation; E11.9 Type 2 diabetes mellitus without complications; I10 Essential (primary) hypertension; Z87.891 Personal history of nicotine dependence; Z88.0 Allergy status to penicillin; Z79.84 Long term (current) use of oral hypoglycemic drugs; Z79.899 Other long term (current) drug therapy
CPT/HCPCS: 36415; 71045; 80053; 82962; 83036; 83880; 84484; 85025; 93005; 94640; 99291; J0456; J0696; J2920; J2930; J3475; J3490; J7050

== ENCOUNTER 2022-05-05 09:15 | Emergency (ER) | payer MEDICARE ==
[~2022-05-05] VITALS: Ht 185.4 cm; Wt 100.0 kg
[~2022-05-05 09:15] MED LIST changes: -ALBU18HF2 IH; +ALBU4TAB6 PO; -BLOO1KIT74 TP; +BUDE6HFA INH; -FLUT1AER INH; +FLUT1DIS2 INH; -IPRA3AMP9 HHN; -IPRA3AMP9 NEB; -LEVO500T2 MT; +METF-414 PO; -P20 PO; -TUSSL MT
[2022-05-05] MEDS ORDERED: IPRATROPIUM/ALBUTEROL 0.5-3(2.5)MG/3ML NEB HHN ONE ×2 (09:39→09:45)
[2022-05-05] MEDS ORDERED: METHYLPREDNISOLONE SOD SUCC 125 MG/2 ML VIAL IV ONE (09:45)
[2022-05-05 09:51] LABS: CHLORIDE 106 mEq/L (98-107)
[2022-05-05 09:56] LABS: BASOPHILS % 0.8 % (0.0-2.0); EOSINOPHILS % 6.9 % (0.0-5.0); HEMATOCRIT. 44.5 % (42.0-52.0); HEMOGLOBIN. 14.5 g/dL (14.0-18.0); LYMPHOCYTES % 22.4 % (20.0-50.0); MEAN CORPUSCULAR HEMOGLOBIN 30.9 pg (28.0-32.0); MEAN CORPUSCULAR VOLUME 94.8 fL (80.0-94.0); MONOCYTES % 11.6 % (2.0-8.0); NEUTROPHILS % 58.3 % (40.0-76.0); PLATELET 184 x1000/uL (130-400); RED BLOOD CELL COUNT 4.69 mill/uL (4.7-6.1); RED CELL DISTRIBUTION WIDTH 15.2 % (11.6-14.6)
[2022-05-05 10:06] LABS: BG BASE EXCESS -1.7 mmol/L (-2.0-2.0); BG CARBOXYHEMOGLOBIN 0.2 % (0.5-1.5); BG DEOXYHEMOGLOBIN 3.4 % (0.0-5.0); BG FRACTION INSPIRED OXYGEN 44; BG HCO3 ACT 23.2 mmol/L (22.0-26.0); BG METHEMOGLOBIN 0.7 % (0.0-1.5); BG OXYGEN SATURATION 96.6 % (92.0-98.5); BG OXYHEMOGLOBIN 95.7 % (94.0-97.0); BG PCO2 39.9 mmHg (35.0-45.0); BG PH 7.382 (7.350-7.450); BG PO2 92.3 mmHg (75.0-100.0); BG SAMPLE SITE LEFT RADIAL; BG TOTAL HEMOGLOBIN 15.5 g/dL (12.0-18.0); BG VENT MODE NASAL CANNULA
[2022-05-05] MEDS: IPRATROPIUM/ALBUTEROL 0.5-3(2.5)MG/3ML NEB HHN NR ×2 (12:11→17:02)
[2022-05-06 01:31] VITALS: BP 136/78
== END 2022-05-06 02:04 | disposition short-term general hospital (02) ==
LOC: ER 09:32 → CANBEDREQ 05-06 08:29
DX: J44.1 Chronic obstructive pulmonary disease with (acute) exacerbation (principal); I10 Essential (primary) hypertension; Z20.822 Contact with and (suspected) exposure to COVID-19
CPT/HCPCS: 36415; 36600; 71045; 80053; 82375; 82805; 83880; 84484; 85025; 87426; 93005; 94640; 96374; 99285; C9803; J2930; Z7610

== ENCOUNTER 2022-07-05 22:24 | Emergency (ER) | payer MEDICAID, MEDICARE ==
[~2022-07-05] VITALS: Ht 175.3 cm; Wt 73.0 kg
[~2022-07-05 22:24] MED LIST changes: +LOSA100T32 PO; +P20 MT
[2022-07-06] MEDS ORDERED: ASPIRIN 81MG TABLET PO ONE
[2022-07-06 00:55] LABS: BASOPHILS % 0.2 % (0.0-2.0); HEMOGLOBIN. 14.5 g/dL (14.0-18.0); LYMPHOCYTES % 9.1 % (20.0-50.0); MEAN CORPUSCULAR HEMOGLOBIN 30.7 pg (28.0-32.0); NEUTROPHILS % 81.7 % (40.0-76.0); PLATELET 166 x1000/uL (130-400); RED BLOOD CELL COUNT 4.72 mill/uL (4.7-6.1); RED CELL DISTRIBUTION WIDTH 14.6 % (11.6-14.6)
[2022-07-06 01:02] LABS: CHLORIDE 104 mEq/L (98-107)
[2022-07-06] MEDS ORDERED: MAGNESIUM/ALUMINUM HYDROXIDE/SIMETHICONE 30ML UDC PO PRN (04:45)
[2022-07-06] MEDS ORDERED: IPRATROPIUM/ALBUTEROL 0.5-3(2.5)MG/3ML NEB HHN PRN (04:45)
[2022-07-06] MEDS ORDERED: DOCUSATE SODIUM 100MG CAPSULE PO PRN (04:45)
[2022-07-06] MEDS ORDERED: CLONIDINE 0.1MG TABLET PO PRN (04:45)
[2022-07-06] MEDS ORDERED: ACETAMINOPHEN 325MG TABLET PO PRN ×2 (04:45)
[2022-07-06] MEDS ORDERED: HYDROCODONE/ACETAMINOPHEN 5/325MG TABLET PO PRN (04:45)
[2022-07-06] MEDS ORDERED: DIPHENHYDRAMINE 50MG/ML VIAL IV PRN (04:45)
[2022-07-06] MEDS ORDERED: NA PHOS,M-B/NA PHOS,DI-BA ENEMA 118ML PR PRN (04:45)
[2022-07-06] MEDS ORDERED: GUAIFENESIN 200MG/10ML SUGAR FREE UDC PO PRN (04:45)
[2022-07-06] MEDS ORDERED: ONDANSETRON HCL 4MG/2ML INJ IV PRN (04:45)
[2022-07-06] MEDS: PANTOPRAZOLE 40MG DR TABLET PO SCH ×2 (05:00→09:39)
[2022-07-06] MEDS ORDERED: DEXTROSE 50% WATER 50ML SYRINGE IV PRN (05:00)
[2022-07-06 05:52] LABS: T4 FREE 0.95 ng/dL (0.76-1.46)
[2022-07-06] MEDS ORDERED: INSULIN LISPRO 100 UNITS/ML SUBCUT SCH (08:20)
[2022-07-06] MEDS ORDERED: ENOXAPARIN 40MG/0.4ML SYR SUBCUT SCH (09:00)
[2022-07-06] MEDS ORDERED: BLOOD SUGAR DIAGNOSTIC STRIP TEST SCH (09:00)
[2022-07-06] MEDS ORDERED: LOSARTAN POTASSIUM 100 MG TABLET PO SCH (09:30)
[2022-07-06] MEDS ORDERED: DILTIAZEM HCL 30MG TABLET PO SCH (10:00)
[2022-07-06 11:33] VITALS: BP 133/85
[2022-07-06] MEDS ORDERED: GUAIFENESIN 600MG ER TABLET PO SCH (21:00)
== END 2022-07-06 12:54 | disposition short-term general hospital (02) ==
LOC: ER 22:24 → SUPCPDRO 07-06 07:05 → EDBEDREQTM 07-06 08:21 → EDBEDREQ 07-06 08:21 → CANBEDREQ 07-06 10:31 → ER 07-06 12:54
DX: R55 Syncope and collapse (principal); G90.8 Other disorders of autonomic nervous system; E11.9 Type 2 diabetes mellitus without complications; I10 Essential (primary) hypertension; J44.9 Chronic obstructive pulmonary disease, unspecified; Z75.1 Person awaiting admission to adequate facility elsewhere; Z79.84 Long term (current) use of oral hypoglycemic drugs; Z88.0 Allergy status to penicillin
CPT/HCPCS: 36415; 70450; 71045; 80053; 80061; 82962; 83036; 83880; 84439; 84443; 84484; 85025; 93005; 96372; 99291; J1650; Z7610

== ENCOUNTER 2022-07-31 23:33 | Inpatient (IN) | payer MEDICAID, MEDICARE ==
[~2022-07-31] VITALS: Ht 180.3 cm; Wt 95.3 kg
[2022-08-01] MEDS ORDERED: IPRATROPIUM BROMIDE (0.02%) 0.5MG/2.5ML NEB HHN NR (00:19)
[2022-08-01] MEDS ORDERED: ALBUTEROL (0.083%) 2.5MG/3ML NEB HHN NR (00:19)
[2022-08-01] MEDS ORDERED: METHYLPREDNISOLONE SOD SUCC 125 MG/2 ML VIAL IV NR (00:19)
[2022-08-01] MEDS ORDERED: MAGNESIUM 2 G PREMIX 50 ML IV NR (00:19)
[2022-08-01 01:12] LABS: HEMATOCRIT 40.5 % (42.0-52.0); HEMOGLOBIN 13.7 g/dL (14.0-18.0); MEAN CORPUSCULAR HEMOGLOBIN 30.6 pg (28.0-32.0); MEAN CORPUSCULAR VOLUME 90.2 fL (80.0-94.0); PLATELET 183 x1000/uL (130-400); RED BLOOD CELL COUNT 4.49 mill/uL (4.7-6.1); RED CELL DISTRIBUTION WIDTH 14.8 % (11.6-14.6)
[2022-08-01 01:27] LABS: CHLORIDE 105 mEq/L (98-107)
[2022-08-01] MEDS ORDERED: ACETAMINOPHEN 325MG TABLET PO PRN (08:45)
[2022-08-01] MEDS ORDERED: ONDANSETRON HCL 4MG/2ML INJ IV PRN (08:45)
[2022-08-01] MEDS ORDERED: METHYLPREDNISOLONE SOD SUCC 40 MG/ML VIAL IV SCH (09:00)
[2022-08-01] MEDS ORDERED: METHYLPREDNISOLONE SOD SUCC 40 MG/ML VIAL IV NR (11:00)
[2022-08-01] MEDS: IPRATROPIUM/ALBUTEROL 0.5-3(2.5)MG/3ML NEB HHN SCH ×3 (11:45→20:21)
[2022-08-01] MEDS: METHYLPREDNISOLONE SOD SUCC 40 MG/ML VIAL IV SCH (18:36)
[2022-08-01 22:00] VITALS: BP 141/75
[2022-08-01] MEDS: FAMOTIDINE 20MG TABLET PO SCH (22:33)
[2022-08-02] VITALS: BP 138/76
[2022-08-02] MEDS: IPRATROPIUM/ALBUTEROL 0.5-3(2.5)MG/3ML NEB HHN SCH ×7 (02:35→23:27)
[2022-08-02 04:00] VITALS: BP 134/78
[2022-08-02 08:00] VITALS: BP 135/76
[2022-08-02] MEDS ORDERED: DEXTROSE 50% WATER 50ML SYRINGE IV PRN (08:45)
[2022-08-02] MEDS: METHYLPREDNISOLONE SOD SUCC 40 MG/ML VIAL IV SCH ×2 (09:34→21:28)
[2022-08-02] MEDS ORDERED: INFLUENZA VACCINE 05/PF 0.5 ML SYRINGE IM ONE (11:00)
[2022-08-02] MEDS: BLOOD SUGAR DIAGNOSTIC STRIP TEST SCH ×3 (11:31→21:38)
[2022-08-02] MEDS: INSULIN LISPRO 100 UNITS/ML SUBCUT SCH ×3 (12:07→21:42)
[2022-08-02 16:00] VITALS: BP 146/72
[2022-08-02] MEDS: GUAIFENESIN-DM 200MG-20MG/10ML UDC PO PRN ×2 (17:57→21:43)
[2022-08-02 20:00] VITALS: BP 112/66
[2022-08-02] MEDS: FAMOTIDINE 20MG TABLET PO SCH (21:28)
[2022-08-03] VITALS: BP 147/80
[2022-08-03] MEDS: IPRATROPIUM/ALBUTEROL 0.5-3(2.5)MG/3ML NEB HHN SCH ×5 (03:15→22:00)
[2022-08-03] MEDS: BUDESONIDE 0.5MG/2ML NEB HHN SCH ×3 (03:15→22:00)
[2022-08-03 04:00] VITALS: BP 149/82
[2022-08-03] MEDS: GUAIFENESIN-DM 200MG-20MG/10ML UDC PO PRN (05:16)
[2022-08-03] MEDS: BLOOD SUGAR DIAGNOSTIC STRIP TEST SCH ×4 (05:54→21:29)
[2022-08-03] MEDS: INSULIN LISPRO 100 UNITS/ML SUBCUT SCH ×4 (06:18→21:28)
[2022-08-03] MEDS: METHYLPREDNISOLONE SOD SUCC 40 MG/ML VIAL IV SCH ×2 (08:57→21:28)
[2022-08-03 12:00] VITALS: BP 150/89
[2022-08-03 16:00] VITALS: BP 106/76
[2022-08-03 20:00] VITALS: BP 116/68
[2022-08-03] MEDS: FAMOTIDINE 20MG TABLET PO SCH (21:28)
[2022-08-04] VITALS: BP 121/72
[2022-08-04] MEDS: IPRATROPIUM/ALBUTEROL 0.5-3(2.5)MG/3ML NEB HHN SCH ×4 (01:10→12:20)
[2022-08-04 04:00] VITALS: BP 154/87
[2022-08-04] MEDS: BLOOD SUGAR DIAGNOSTIC STRIP TEST SCH ×2 (06:10→11:23)
[2022-08-04] MEDS: INSULIN LISPRO 100 UNITS/ML SUBCUT SCH ×2 (06:10→12:37)
[2022-08-04 07:49] LABS: CHLORIDE 101 mEq/L (98-107)
[2022-08-04 07:51] LABS: BASOPHILS % 0.1 % (0.0-2.0); HEMATOCRIT. 38.9 % (42.0-52.0); HEMOGLOBIN. 13.2 g/dL (14.0-18.0); LYMPHOCYTES % 9.3 % (20.0-50.0); MEAN CORPUSCULAR HEMOGLOBIN 30.6 pg (28.0-32.0); MEAN CORPUSCULAR VOLUME 90.1 fL (80.0-94.0); MEAN PLATELET VOLUME 8.6 fl (7.4-10.4); MONOCYTES % 5.7 % (2.0-8.0); NEUTROPHILS % 84.9 % (40.0-76.0); PLATELET 170 x1000/uL (130-400); RED BLOOD CELL COUNT 4.31 mill/uL (4.7-6.1); RED CELL DISTRIBUTION WIDTH 14.6 % (11.6-14.6)
[2022-08-04] MEDS: BUDESONIDE 0.5MG/2ML NEB HHN SCH (07:51)
[2022-08-04 08:00] VITALS: BP 134/86
[2022-08-04] MEDS: METHYLPREDNISOLONE SOD SUCC 40 MG/ML VIAL IV SCH (08:50)
[2022-08-04] MEDS: GUAIFENESIN-DM 200MG-20MG/10ML UDC PO PRN (11:23)
[2022-08-04 12:00] VITALS: BP 146/84
[2022-08-04] MEDS ORDERED: P20 MT (12:31)
[2022-08-04] MEDS ORDERED: PULM50 NEB (12:45)
[2022-08-04] MEDS ORDERED: ALBU18HF2 IH (12:45)
[2022-08-04] MEDS ORDERED: IPRA3AMP9 NEB (13:09)
[2022-08-04] MEDS ORDERED: LORA10CA MT (13:09)
[2022-08-04 13:22] VITALS: BP 146/84
== END 2022-08-04 15:30 | disposition home or self-care (01) | DRG 140 ==
LOC: ER 23:42 → MICUSO 08-01 04:10 → 7EST 08-01 22:18
PROVIDERS: ADMIT Internal Medicine; ATTEND Internal Medicine
DX: J44.1 Chronic obstructive pulmonary disease with (acute) exacerbation (principal); J96.01 Acute respiratory failure with hypoxia; I10 Essential (primary) hypertension; E11.9 Type 2 diabetes mellitus without complications; Z87.891 Personal history of nicotine dependence; Z88.0 Allergy status to penicillin; Z79.899 Other long term (current) drug therapy
CPT/HCPCS: 36415; 71045; 80053; 82962; 84484; 85025; 85027; 87426; 90686; 93005; 94640; 99291; C9803; J1815; J2920; J2930; J3475; J7626

== ENCOUNTER 2023-01-24 20:26 | Emergency (ER) | payer MEDICAID, MEDICARE ==
[~2023-01-24] VITALS: Ht 177.8 cm; Wt 104.0 kg
[~2023-01-24 20:26] MED LIST changes: +ALBU18HF2 IH; +ATROV INH; +DILT30TA37 PO; -DILT30TA38 PO; +FLUT1BLS3 INH; +IPRA3AMP9 NEB; +LORA10CA MT; -LOSA100T32 PO; +LOSA100T33 PO; +PULM50 NEB
[2023-01-24] MEDS ORDERED: METHYLPREDNISOLONE SOD SUCC 125 MG/2 ML VIAL IV STA (21:22)
[2023-01-24] MEDS ORDERED: ALBUTEROL (0.083%) 2.5MG/3ML NEB HHN STA (21:22)
[2023-01-24 22:00] LABS: BASOPHILS % 0.4 % (0.0-2.0); EOSINOPHILS % 0.1 % (0.0-5.0); HEMATOCRIT. 41.3 % (42.0-52.0); HEMOGLOBIN. 13.8 g/dL (14.0-18.0); LYMPHOCYTES % 7.4 % (20.0-50.0); MEAN CORPUSCULAR HEMOGLOBIN 30.2 pg (28.0-32.0); MEAN CORPUSCULAR VOLUME 90.6 fL (80.0-94.0); MEAN PLATELET VOLUME 7.9 fl (7.4-10.4); MONOCYTES % 3.3 % (2.0-8.0); NEUTROPHILS % 88.8 % (40.0-76.0); PLATELET 183 x1000/uL (130-400); RED BLOOD CELL COUNT 4.56 mill/uL (4.7-6.1); RED CELL DISTRIBUTION WIDTH 15.1 % (11.6-14.6)
[2023-01-24 22:12] LABS: CHLORIDE 107 mEq/L (98-107)
[2023-01-25 08:00] VITALS: BP 185/87
== END 2023-01-25 08:30 | disposition short-term general hospital (02) ==
LOC: ER 20:26 → CANBEDREQ 01-25 07:48 → ER 01-25 08:30
DX: J44.1 Chronic obstructive pulmonary disease with (acute) exacerbation (principal); I10 Essential (primary) hypertension; Z20.822 Contact with and (suspected) exposure to COVID-19; Z88.0 Allergy status to penicillin; Z79.899 Other long term (current) drug therapy; E78.00 Pure hypercholesterolemia, unspecified
CPT/HCPCS: 36415; 71045; 80053; 83880; 84484; 85025; 87426; 93005; 94640; 96374; 99285; C9803; J2930; Z7610

== ENCOUNTER 2023-04-02 02:11 | Emergency (ER) | payer MEDICARE ==
[~2023-04-02] VITALS: Ht 180.3 cm; Wt 91.0 kg
[~2023-04-02 02:11] MED LIST changes: -BUDE6HFA INH
[2023-04-02 02:18] VITALS: TEMP 98.3
[2023-04-02] MEDS ORDERED: ALBUTEROL (0.083%) 2.5MG/3ML NEB HHN STA (02:19)
[2023-04-02] MEDS ORDERED: METHYLPREDNISOLONE SOD SUCC 125MG/2ML (ACT-O-VIAL) IV STA (02:19)
[2023-04-02] MEDS ORDERED: IPRATROPIUM BROMIDE (0.02%) 0.5MG/2.5ML NEB HHN STA (02:19)
[2023-04-02 02:30] LABS: BASOPHILS % 0.7 % (0.0-2.0); EOSINOPHILS % 6.6 % (0.0-5.0); HEMATOCRIT. 38.8 % (42.0-52.0); HEMOGLOBIN. 13.4 g/dL (14.0-18.0); LYMPHOCYTES % 30.1 % (20.0-50.0); MEAN CORPUSCULAR HEMOGLOBIN 32.2 pg (28.0-32.0); MEAN CORPUSCULAR HGB CONC 34.5 g/dL (31.0-37.0); MEAN CORPUSCULAR VOLUME 93.2 fL (80.0-94.0); MEAN PLATELET VOLUME 7.5 fl (7.4-10.4); MONOCYTES % 10.5 % (2.0-8.0); NEUTROPHILS % 52.1 % (40.0-76.0); PLATELET 166 x1000/uL (130-400); RED BLOOD CELL COUNT 4.16 mill/uL (4.7-6.1); RED CELL DISTRIBUTION WIDTH 16.1 % (11.6-14.6); WHITE BLOOD COUNT 7.3 x1000/uL (4.5-11.0)
[2023-04-02 02:58] LABS: CHLORIDE 109 mEq/L (98-107); INDEX HEMOLYSI 1 (1-3); INDEX ICTERIC 1 (1-4); INDEX LIPEMIC 1 (1-3); POTASSIUM 3.3 mEq/L (3.5-5.1); SODIUM 135 mEq/L (136-145)
[2023-04-02 03:08] LABS: ALANINE AMINOTRANSFERASE 19 IU/L (13-61); ALBUMIN 3.5 g/dL (3.4-5.0); ASPARTATE AMINOTRANSFERASE 14 IU/L (15-37); BILIRUBIN TOTAL 0.6 mg/dL (0.1-1.0); CALCIUM 8.9 mg/dL (8.5-10.1); CARBON DIOXIDE 24 mEq/L (21-32); CREATININE 0.9 mg/dL (0.6-1.3); ETHANOL BLOOD < 10 mg/dL (-10); GLUCOSE 101 mg/dL (70-105); NT PRO B-TYPE NATRIURETIC PEP 36 pg/mL (5-125); TROPONIN I HIGH SENSITIVITY 6 ng/L (<78); UREA NITROGEN BLOOD 10 mg/dL (7-21)
[2023-04-02 03:15] VITALS: PULSE 108; RESP 20; O2SAT 99
[2023-04-02] MEDS ORDERED: KCL 20MEQ/100ML PREMIX 100 ML IV NR (03:45)
[2023-04-02 04:13] LABS: BG CARBOXYHEMOGLOBIN 0.6 % (0.5-1.5); BG DEOXYHEMOGLOBIN 7.6 % (0.0-5.0); BG FRACTION INSPIRED OXYGEN 21; BG HCO3 ACT 25.6 mmol/L (22.0-26.0); BG METHEMOGLOBIN 0.3 % (0.0-1.5); BG OXYGEN SATURATION 92.3 % (92.0-98.5); BG OXYHEMOGLOBIN 91.5 % (94.0-97.0); BG PCO2 40.6 mmHg (35.0-45.0); BG PH 7.417 (7.350-7.450); BG SAMPLE SITE RIGHT RADIAL; BG TOTAL HEMOGLOBIN 13.8 g/dL (12.0-18.0); BG VENT MODE ROOM AIR
[2023-04-02] MEDS ORDERED: IPRATROPIUM BROMIDE (0.02%) 0.5MG/2.5ML NEB HHN ONE (06:45)
[2023-04-02] MEDS ORDERED: ALBUTEROL (0.5%) 2.5MG/0.5ML NEB HHN ONE (06:45)
[2023-04-02 09:20] VITALS: PULSE 100; RESP 24; O2SAT 98
[2023-04-02] MEDS ORDERED: ALBUTEROL (0.083%) 2.5MG/3ML NEB ONE (09:21)
[2023-04-02] MEDS ORDERED: IPRATROPIUM BROMIDE (0.02%) 0.5MG/2.5ML NEB ONE (09:21)
[2023-04-02 09:29] VITALS: BP 136/90; PULSE 100; RESP 19
[2023-04-02 15:38] LABS: *AMPHETAMINES SCREEN URINE NEGATIVE (NEGATIVE); *BARBITURATES SCREEN URINE NEGATIVE (NEGATIVE); *BENZODIAZEPINES SCREEN URINE NEGATIVE (NEGATIVE); *COCAINE SCREEN URINE NEGATIVE (NEGATIVE); CANNABINOID URINE SCREEN NEGATIVE (NEGATIVE); ECSTASY MDMA SCREEN URINE NEGATIVE (NEGATIVE); METHADONE URINE SCREEN NEGATIVE (NEGATIVE); OPIATES URINE SCREEN NEGATIVE (NEGATIVE); PHENCYCLIDINE URINE SCREEN NEGATIVE (NEGATIVE)
== END 2023-04-02 09:25 | disposition short-term general hospital (02) ==
LOC: ER 02:11 → CANBEDREQ 08:06 → ER 09:25
DX: J44.1 Chronic obstructive pulmonary disease with (acute) exacerbation (principal); E11.9 Type 2 diabetes mellitus without complications; E78.00 Pure hypercholesterolemia, unspecified; I10 Essential (primary) hypertension; Z79.899 Other long term (current) drug therapy; Z20.822 Contact with and (suspected) exposure to COVID-19
CPT/HCPCS: 80053; 80305; 80320; 83880; 83690; 85025; 84484; 36415; 71045; 94640; 82805; 82375; 93005; 96365; 96366; 96375; 99285; 87426; 36600; J2930; J3480; Z7610 ×4; C9803; G0480